=== PATIENT | male | born 1995 | race Caucasian/White ===

== ENCOUNTER 2023-12-01 19:24 | Emergency (ER) | payer BC ==
[2023-12-01 20:04] VITALS: RESP 16; TEMP 98.7; O2SAT 95
[2023-12-01] MEDS ORDERED: Adacel Vial IM ONE (21:00)
[2023-12-01] MEDS: Adacel Vial IM ONE (21:02)
[2023-12-01] MEDS ORDERED: BACIGUENT PACKET ONE (21:11)
[2023-12-01] MEDS: BACIGUENT PACKET TP ONE (21:12)
--- NOTE | 2023-12-01 21:24 | ERPHSYRPT ---
- History of Present Illness Time Seen by Provider: 12/01/23 21:00 Source: patient Exam Limitations: no limitations Patient Subjective Stated Complaint: cut right index finger on glass while doing dishes Triage Nursing Assessment: V shaped laceration to right index finger, scant amount of bleeding Physician History: 28yo m presents to ED w/ cut on right first finger. Pt reports he was washing dishes and he cut his finger on a piece of broken glass. Pt reports this happened roughly [address]h [address] [employer], he tried direct pressure which did not completely stop the bleeding. Pt denies any other concerns at this time, reports his last tetanus shot was > 10yr ago. Timing/Duration: today Quality: painful Severity: mild Location: hands Possible Causes: other (cut finger on broken glass) Allergies/Adverse Reactions: cinnamon Allergy (Verified 12/01/23 19:39) Anaphylactic Reaction Home Medications: Omeprazole 40 mg PO DAILY 12/01/23 [History] Topiramate 25 mg [Topamax 25 MG] 25 mg PO QHS 12/01/23 [History] Hx Tetanus, Diphtheria Vaccination/Date Given: No (15 years ago) Immunizations Up to Date: (unknown) Travel Risk - International Travel Have you traveled outside of the country in past 3 weeks: No - Emerging Infectious Disease Are you exhibiting symptoms associated with any current EIDs: No - Review of Systems Constitutional: No Symptoms Eyes: No Symptoms Respiratory: No Symptoms Cardiac: No Symptoms Skin: Other (laceration) - Past Medical History Pertinent Past Medical History: Yes Neurological History: Migraines ENT History: No Pertinent History Cardiac History: No Pertinent History Respiratory History: Sleep Apnea Endocrine Medical History: No Pertinent History Musculoskeletal History: No Pertinent History GI Medical History: Other History: No Pertinent History Psycho-Social History: Anxiety, Other Male Reproductive Disorders: No Pertinent History Other Medical History: does not wear CPAP (positional sleep apnea), elevated liver enzymes d/t excessive tylenol use for migraines, ADHD - Past Surgical History Past Surgical History: Yes Neuro Surgical History: No Pertinent History Cardiac: No Pertinent History Respiratory: No Pertinent History Gastrointestinal: No Pertinent History Genitourinary: No Pertinent History Musculoskeletal: No Pertinent History Male Surgical History: No Pertinent History Other Surgical History: unsure of type of eye surgery, was a toddler at the time - Social History Smoking Status: Current every day smoker How long have you smoked: 20 years Drug Use: none - Social Determinants of Health Will the patient participate in the screening: Yes Do you worry about a steady place to live?: No Do you have any problems with any of the following?: No known problems In the past 12 months,have you had to go without utilities?: No Transportation Issues: No Has anyone in your support network made you feel unsafe?: No Have you or anyone in your house had to go without enough: No - Nursing Vital Signs Nursing Vital Signs: Initial Vital Signs Temperature 98.7 F 12/01/23 19:59 Pulse Rate 114 H 12/01/23 19:59 Respiratory Rate 16 12/01/23 19:59 Blood Pressure 133/88 12/01/23 19:59 O2 Sat by Pulse Oximetry 95 12/01/23 19:59 Pain Scale Pain Intensity 6 - Physical Exam General Appearance: no apparent distress, alert Respiratory Exam: normal breath sounds, lungs clear, No respiratory distress Cardiovascular Exam: regular rate/rhythm Skin Exam: laceration (right first finger laceration - V shaped w/ apex proxim al, 2cm x 2cm in length, minimal bleeding ) SpO2 Interpretation: normal SpO2: 95 O2 Delivery: Room Air Procedures - Laceration/Wound Repair Right Dorsal Finger Time of Procedure: 21:10 (first finger, dorsal aspect) Wound Location: Right, hand Wound Length (cm): 2 (2x2 cm ) Wound's Depth, Shape: superficial, linear, flap Wound Explored: to base Irrigated: Yes Hibiclens Prep: Yes Anesthesia: local, 1% Lidocaine Volume Anesthetic (ccs): 5 Wound Debrided: moderate Wound Repaired With: sutures Suture Size/Type: 4-0, prolene Number of Sutures: 9 Sterile Dressing Applied?: Yes Splint Applied?: Yes Type of Splint Applied: simple immobilizing Sling Applied?: No Ordered Tests: Active Orders 24 hr Category Date Time Status Wound Care STAT Care 12/01/23 21:10 Active Medication Summary Discontinued Medications Generic Name Dose Route Start Last Admin Trade Name Freq PRN Reason Stop Dose Admin Bacitracin Zinc 0.9 each 12/01/23 21:11 12/01/23 21:12 Bacitracin Packet 1 Each Pckt TP 12/01/23 21:12 0.9 each STAT ONE Administration Bacitracin Zinc Confirm 12/01/23 21:11 Bacitracin Packet 1 Each Pckt Administered 12/01/23 21:12 Dose 1 each .ROUTE .STK-MED ONE Diphtheria/Tetanus/Acell Pertussis 0.5 ml 12/01/23 20:43 12/01/23 21:02 Tdap --Diph,Pertuss(Acell),Tet Vac/Pf 0.5 Ml Vial IM 12/01/23 20:44 0.5 ml .ONCE ONE Administration Diphtheria/Tetanus/Acell Pertussis Confirm 12/01/23 21:00 Tdap --Diph,Pertuss(Acell),Tet Vac/Pf 0.5 Ml Vial Administered 12/01/23 21:01 Dose 0.5 ml IM .STK-MED ONE - Progress Progress: improved Progress Note: 12/01/23 21:26 laceration repaired as noted 9 sutures placed, dermabond applied to distal portion of flap for added security leave sutures in placed x 14d, may have them taken out here or by PCP tetanus shot given keep area clean and dry, use splint when possible to avoid added flexion and stress on wound return to ED if: bleeding does not resolve, develop fevers that do not resolve w/ tylenol, develop drainage from wound Counseled pt/family regarding: diagnosis, need for follow-up Medical Desision Making - Diagnostic Testing Diagnostic test were ordered, analyzed, and reviewed by me: No - Risk of complications Minimal Risk: Minimal risk of morbidity - Departure Departure Disposition: Home Clinical Impression: Finger laceration Qualifiers: Encounter type: initial encounter Finger: index finger Damage to nail status: without damage Foreign body presence: without foreign body Laterality: right Qualified Code(s): S61.210A - Laceration without foreign body of right index finger without damage to nail, initial encounter Condition: Stable Critical Care Time: No Referrals: DOCTOR,NO FAMILY [Primary Care Provider] - Follow up/PCP as directed Additional Instructions: 9 sutures placed, dermabond applied to distal portion of flap for added security leave sutures in placed x 14d, may have them taken out here or by PCP tetanus shot given keep area clean and dry, use splint when possible to avoid added flexion and stress on wound return to ED if: bleeding does not resolve, develop fevers that do not resolve w/ tylenol, develop drainage from wound
[2023-12-01 21:35] VITALS: BP 135/85; PULSE 88
== END 2023-12-01 21:30 | disposition home or self-care (01) ==
LOC: ED 19:24
DX: S61.210A Laceration without foreign body of right index finger without damage to nail, initial encounter (principal); W25.XXXA Contact with sharp glass, initial encounter; Y93.G1 Activity, food preparation and clean up; Z79.899 Other long term (current) drug therapy; Z72.0 Tobacco use; Z23 Encounter for immunization
CPT/HCPCS: 12001; 90471; 90715; 99283; A9270-GY